=== PATIENT | female | born 1995 | race Caucasian/White ===

== ENCOUNTER 2018-12-04 18:37 | Inpatient (IN) ==
[2018-12-04 17:53] LABS: Bilirubin,Urine Negative (Negative); Blood,Urine Negative (Negative); Clarity,Urine Clear (Clear); Color,Urine Yellow (Yellow); Glucose,Urine (UA) Normal (Normal); Ketones,Urine Negative (Negative); Leukocyte Esterase,Urine Negative (Negative); Nitrite,Urine Negative (Negative); PH,Urine 6.5 pH Units (5.0-8.0); Protein,Urine Negative (Neg-Trace); Specific Gravity,Urine 1.014 (1.010-1.025); Urobilinogen,Urine Normal (Normal)
[2018-12-04 18:01] LABS: Amphetamine Screen,Urine Negative ng/mL (Cutoff=1000); Barbiturate Screen,Urine Negative ng/mL (Cutoff=200); Benzodiazepines Screen,Urine Negative ng/mL (Cutoff=200); Cannabinoid Screen,Urine Negative ng/mL (Cutoff = 50); Cocaine Screen,Urine Negative ng/mL (Cutoff= 300); Opiate Screen,Urine Negative ng/mL (Cutoff=300); Phencyclidine Screen,Urine Negative ng/mL (Cutoff=25)
[~2018-12-04 18:37] MED LIST: *HR* Nalbuphine 10 MG/ML AMPUL IVP PRN; Famotidine 20 MG/2 ML VIAL IVP PRN; Metoclopramide 10 MG/2 ML VIAL IVP PRN; Naloxone 0.4 MG/ML INJ IVP PRN; Ondansetron 4 MG/2 ML VIAL IVP PRN; Ringers Solution, Lactated 1,000 ML IVC ONE; Ringers Solution, Lactated 1,000 ML IVC SCH
--- NOTE | 2018-12-04 18:57 | OB/GYN History & Physical ---
Date of Encounter: 12/04/18 Time of Encounter: 18:57 Assessment and Plan (1) 37 weeks gestation of Current visit: Yes Status: Acute (2) Abnormal heart rate or rhythm (FHR) Current visit: Yes Status: Acute During extended monitoring prolonged deceleration noted on tracing, discuss with admit for induction of labor Admit to labor and delivery May eat prior to start of induction Cervical mejia and Cytotec Nubain and epidural as desired Continuous monitoring Anticipate History of Present Illness Chief complaint: Induction of labor HPI: Ms. Moseley is a 23 year old female 37+0 weeks gestation presents to labor and delivery for evaluation following tachycardia noted in office (180- 200), 150 on arrival to triage. Patient had ultrasound today which showed abdomen and femur length measuring small, and grade 3 placenta. Estimated weight today was 5 lbs. 15 oz., with an ROCK of 13. care with Dr. Lincoln, uncomplicated course other than today's ultrasound findings. Reports good movement, denies contraction, vaginal bleeding or leaking of fluid. Labs: O+, rubella and varicella immune, GBS negative, all other serologies negative Past Med Surg Social Fam HX - Past Medical History Source: patient Medical history: no medical history, other Psychiatric history: depression - Past Surgical History Surgical History: no surgical history - Social History Smoking Status: Current every day smoker Alcohol use: none Drug use: none - Family History Mother Age: 43 Living Status: Still Living Hx Family Cardiac Disorders: Yes (hypertension) Hx Family Respiratory Disorders: No Hx Family Cancer: No Hx Family GI Disorders: No Hx Family Genitourinary Disorders: No Hx Family Endocrine Disorder: No Hx Family Musculoskeletal Disorders: No Hx Family Neuromuscular Disorders: No Hx Family Neurologic Disorders: No Hx Family HEENT Disorders: No Hx Family Autoimmune Disorders: No Hx Family Reproductive Disorders: No Hx Family Psychosocial Disorders: No Hx Family Medical Disorders: No Obstetrical History - Pregnancies : 1 Para: 0 Term: 0 : 0 Ab's: 0 Livin Medications and Allergies Vitamin Tablet 1 / PO DAILY 12/04/18 [History] Allergy/AdvReac Type Severity Reaction Status Date / Time No Known Allergies Allergy Verified 03/22/16 15:26 Exam - Vital Signs Vital signs: Initial Vital Signs Temp Pulse Resp BP 98.8 F 86 14 130/82 05/23/19 17:17 12/04/18 17:17 12/04/18 17:17 12/04/18 17:17 - Constitutional Constitutional: well developed, well nourished, no acute distress, average body habitus - Neck Neck exam: full ROM - Lungs Respiratory exam: CTAB - Cardiovascular Cardiovascular exam: RRR - Abdomen Abdomen: Present: gravid, non tender - Extremities Extremities exam: normal capillary refill, normal inspection - Vagina Vagina: Present: normal moisture - Cervix Dilation: 1 Effacement: 80 Results All other labs normal. - VTE Reasons for not Prescribing Prophylaxis: Treatment not Indicated - Low risk for VTE
[2018-12-04 19:31] LABS: Basophils % 0.2 %; Eosinophils # 0.1 K/mcL (0.0-0.6); Eosinophils % 0.7 %; Hematocrit 34.7 % (35.3-44.9); Hemoglobin 11.1 g/dL (11.5-15.4); Immature Granulocytes % 0.7 % (0-4); Lymphocytes # 2.2 K/mcL (0.6-4.6); Lymphocytes % 17.9 %; Mean Corpuscular Hemoglobin 25.9 pg (28.0-33.3); Mean Corpuscular Volume 81.1 fL (83.0-100.0); Mean Platelet Volume 11.5 fL (9.4-12.4); Monocytes # 0.9 K/mcL (0.0-1.3); Monocytes % 7.2 %; Neutrophils # 9.1 K/mcL (1.6-8.9); Platelet Count 296 K/mcL (140-400); Red Blood Count 4.28 M/mcL (3.82-4.97); Red Cell Distribution Width 14.2 % (11.5-14.5); Segmented Neutrophils % 73.3 %
--- NOTE | 2018-12-04 22:25 | OB Labor Progress Note ---
Date of Encounter: 12/04/18 Time of Encounter: 22:22 Labor Progress Note - Subjective Subjective: Comfortable at this time. - Vital Signs Vital Signs: 130/83 - Cervix Cervix: 1/80/-2 - Heart Tones Heart Tones: 140/moderate/+accels/- decels - Interventions Interventions: Cervical mejia placed with 60cc balloon - Plan Physician notified: Yes Physician notified details: tracing reviewed with Dr. Condon prior to mejia placement, plan change to cervidil instead of cytotec Plan: Cervidil inserted mejia inserted benadryl as needed for sleep nubain and epidural as desired anticipate
--- NOTE | 2018-12-05 04:28 | OB Labor Progress Note ---
Date of Encounter: 12/05/18 Time of Encounter: 04:25 Labor Progress Note - Heart Tones Heart Tones: 145/moderate/positive accelerations/variable and late decelerations - [place]: Adjusted - Interventions Interventions: Luis came out when tugged by RN - Plan Plan: Continuous monitoring Nubain and epidural as desired Encourage repositioning Plan for next cervical exam after Cervidil time is over or if patient needs pain medication Anticipate
--- NOTE | 2018-12-05 08:07 | OB Labor Progress Note ---
Date of Encounter: 12/05/18 Time of Encounter: 08:07 Labor Progress Note - Subjective Subjective: Patient comfortable in bed. States contractions are tolerable. - Vital Signs Vital Signs: VSS - Cervix Cervix: 6/90/-1 - Heart Tones Heart Tones: 140 moderate variability with 15 x 15 accels and no decels. - Farmers Farmers: Contractions every 1 - 2 minutes palpate moderate to firm. resting tone palpates soft - Interventions Interventions: AROM for moderate amount of light blood tinged fluid and IUPC placed without difficult. Patient and fetus tolerated well. - Plan Physician notified: Yes Physician notified details: Notified of dilation and AROM/IUPC. Plan: Continue routine labor management GBS negative Consider pitocin if needed for augmentation Anticipate vaginal delivery POC per consult with Dr Miles.
[2018-12-05] MEDS ORDERED: Oxytocin 20 units/ LR 1000 mL 20 UNIT/1,000 ML BAG IVC ONE ×2 (08:17→15:18)
[2018-12-05] MEDS ORDERED: Epidural Premix (fent/bupiv) 110 ML EP ONE (09:01)
[2018-12-05] MEDS ORDERED: *HR* Ropivacaine/PF 0.2% 20 ML VIAL ONE (09:10)
[2018-12-05] MEDS ORDERED: Terbutaline 1 MG/ML VIAL SQ ONE ×2 (09:18→09:20)
--- NOTE | 2018-12-05 09:28 | Anesthesia Evaluation PreOp ---
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: Denies Any Significant HX Other Medical History: Denies Any Significant HX Anesthesia History: No Prior Anesthetic Complications Alcohol Use: none Drug use: none Medications and Allergies Vitamin Tablet 1 / PO DAILY 12/04/18 [History] Allergy/AdvReac Type Severity Reaction Status Date / Time No Known Allergies Allergy Verified 03/22/16 15:26 - Meds/Allergy Pre-op Review Medications Reviewed: Yes Allergies Reviewed: Yes Beta Blockers on Current Med List: No Anesthesia Results - Labs 12/04/18 19:10 Anesthesia Exam Last Vital Signs Temp 98.8 F 12/04/18 17:17 Pulse 86 12/04/18 17:17 Resp 14 12/04/18 17:17 BP 130/82 12/04/18 17:17 Weight: 84 kg NPO (# of Hours): > 8 hrs - HEENT Pupil (Motor): Pupils equal, EOMI Teeth: Normal Oral Opening: Greater than 3 - CORNER BEAD OPERATOR LOC: Oriented - Cardiac Rhythm: Regular - Pulmonary Breath Sounds: bilateral Clear Respiratory Effort: Symmetrical Anesthesia Assess/Plan ASA Score: 2 Level of consciousness: Cooperative Anesthetic Plan: Epidural Monitoring Plan: Standard Monitors Recovery Plan: Other (L&D room)
--- NOTE | 2018-12-05 09:30 | Anesthesia Procedures ---
Date of Encounter: 12/05/18 Time of Encounter: 09:05 Procedures: Anesthesia - Epidural/Spinal Patient ID/Chart reviewed: Yes Patient examined: Yes OB Eval: Gestational age: 37 weeks 1 day OB Eval: : 1 OB Eval: Hx Para: 0 OB Eval: Dilated at (cm): 8 OB Eval: Contractions: Non-stressed pattern Consent Obtained: Yes Supplemental Oxygen: None/Room Air Site Prep: Aseptic Technique, Sterile prep and drape, 0.5% Chlorhexidine/Alcohol Patient position: upright Local Anesthetic: Lidocaine 1% Amount of Local Anesthetic used: 3 Touhy Needle Gauge: 18 Touhy Needle Depth (cm): 6 Catheter Depth at Skin (cm): 15 Test Dose (1.5% Lido + Epi): Volume given (mls): 3 Test Dose Result: Negative Loading Dose: Other: 0.2% ropiv - 10 ml Loading Dose Administered: Thru Catheter Infusion Med: 0.125% Bupivacaine w/ 2 mcg/ml Fentanyl Infusion Rate (mls/hr): [address]: Tegaderm, Tape Interspace Used: L3-L4 Loss of Resistance (ZULEIKA): Yes Blood: No CSF: No Paresthesia: Yes (resolved)
[2018-12-05] MEDS ORDERED: EPHEDrine 50 MG/ML VIAL IVP PRN (10:33)
[2018-12-05] MEDS ORDERED: Ondansetron 4 MG/2 ML VIAL IVP PRN (10:33)
[2018-12-05] MEDS ORDERED: Acetaminophen 325 MG TABLET PO ONE ×2 (10:37→11:30)
[2018-12-05] MEDS ORDERED: Epidural Premix (fent/bupiv) 110 ML EP SCH (10:45)
--- NOTE | 2018-12-05 13:47 | OB/GYN Procedure Note ---
Delivery - Delivery Date: 12/05/18 Provider: Jak Miles Intrapartum events: none Delivery induction: mejia, cervidil Delivery augmentation: rupture of membranes, pitocin Delivery monitor: external FHT, external uterine, internal uterine Anesthesia: epidural Quantitated Blood Loss: 200 - (s) Infant A Infant Delivery Date: 12/05/18 Presentation: vertex Position: OA Route of delivery: Gender: Male Viability: Viable Pounds: 6 Ounces: 4 at 1 minute: 9 at 5 mins: 9 Shoulder Dystocia: not encountered Specimens collected: cord blood Placenta: spontaneous Cord: 3 umbilical vessels - Repair Episiotomy: none Laceration Description: Perineal - 2nd Degree - Complications Delivery complications: none Delivery comments: This patient progressed to complete and pushing and had a rapid spontaneous vaginal delivery of a male infant over an intact perineum. Infant's head was on the perineum with 2 contractions. The rest the infant was then delivered with 1 push. cried immediately upon delivery. The infant was passed to nursing in attendance. After cord pulsing. The cord was clamped cut. Cord blood was obtained. The placenta was then delivered spontaneously and intact. There are no cervical or vaginal lacerations noted. There was a right periurethral laceration which was repaired with 2 interrupted 3-0 Vicryl sutures. There was a perineal laceration which is a second-degree. This was repaired in usual fashion without incident. Patient tolerated delivery. There was approximate 200 mL blood loss. She delivered a male weight was 6 lbs. 4 oz. and Apgars 9 at 1 minute 9 at 5 minutes estimated blood loss is 200 mL - Disposition Mom disposition: stable in LDR disposition: stable in LDR
[2018-12-05] MEDS ORDERED: Oxytocin 20 units/ LR 1000 mL 20 UNIT/1,000 ML BAG IVC SCH (16:24)
[2018-12-05] MEDS ORDERED: Measles/Mumps/Rubella Vacc 0.5 ML VIAL SQ PRN (16:24)
[2018-12-05] MEDS ORDERED: Acetaminophen 325 MG TABLET PO PRN (16:24)
[2018-12-06 07:12] LABS: Basophils % 0.2 %; Eosinophils # 0.2 K/mcL (0.0-0.6); Hematocrit 31.1 % (35.3-44.9); Hemoglobin 9.9 g/dL (11.5-15.4); Immature Granulocytes % 0.5 % (0-4); Lymphocytes % 19.1 %; Mean Corpuscular HGB Conc 31.8 g/dL (31.6-35.5); Mean Corpuscular Hemoglobin 26.1 pg (28.0-33.3); Mean Corpuscular Volume 81.8 fL (83.0-100.0); Mean Platelet Volume 11.8 fL (9.4-12.4); Monocytes % 6.4 %; Neutrophils # 11.3 K/mcL (1.6-8.9); Platelet Count 246 K/mcL (140-400); Red Cell Distribution Width 14.2 % (11.5-14.5); Segmented Neutrophils % 72.8 %
[2018-12-06 07:46] VITALS: BP 124/74
[2018-12-06] MEDS ORDERED: Prenatal Vit/FA 1 EACH TABLET PO SCH (09:00)
--- NOTE | 2018-12-06 09:01 | Discharge Summary ---
Date of Encounter: 12/06/18 Time of Encounter: 08:58 - Discharge Diagnosis (1) Vaginal delivery Priority: Primary Status: Acute Comments: Continue routine care discharge home today follow up with Dr. Miles in 4-6 weeks (2) Breast feeding status of mother Priority: Secondary Status: Acute Comments: support prn - Discharge Medications Prescriptions: New Breast Pump [BREAST PUMP] 1 each .ROUTE AD #1 each Docusate [Colace] 100 mg PO BID #30 capsule Ibuprofen [Motrin] 600 mg PO Q6HR PRN #60 tab PRN Reason: Pain Continued Vitamin Tablet 1 / PO DAILY Home Medications: Vitamin Tablet 1 / PO DAILY 12/04/18 [History] Breast Pump [BREAST PUMP] 1 each .ROUTE AD #1 each 12/06/18 [Rx] Docusate [Colace] 100 mg PO BID #30 capsule 12/06/18 [Rx] Ibuprofen [Motrin] 600 mg PO Q6HR PRN #60 tab 12/06/18 [Rx] Allergies/Adverse Reactions: Allergy/AdvReac Type Severity Reaction Status Date / Time No Known Allergies Allergy Verified 03/22/16 15:26 Data Procedures and tests throughout hospitalization: Laboratory Tests 12/04/18 12/04/18 12/04/18 17:17 17:17 19:10 WBC 12.5 H RBC 4.28 Hgb 11.1 L Hct 34.7 L MCV 81.1 L MCH 25.9 L MCHC 32.0 RDW 14.2 Plt Count 296 MPV 11.5 Immature Gran % 0.7 Seg Neutrophils % 73.3 Lymphocytes % 17.9 Monocytes % 7.2 Eosinophils % 0.7 Basophils % 0.2 Neutrophils # 9.1 H Lymphocytes # 2.2 Monocytes # 0.9 Eosinophils # 0.1 Basophils # 0.0 Urine Color Yellow Urine Clarity Clear Urine pH 6.5 Ur Specific [place] 1.014 Urine Protein Negative Urine Glucose (UA) Normal Urine Ketones Negative Urine Blood Negative Urine Nitrite Negative Urine Bilirubin Negative Urine Urobilinogen Normal Ur Leukocyte Esterase Negative Ur Culture Indicated? NO Urine Opiates Screen Negative Ur Barbiturates Screen Negative Ur Phencyclidine Scrn Negative Ur Amphetamines Screen Negative U Benzodiazepines Scrn Negative Urine Cocaine Screen Negative U Marijuana (THC) Screen Negative Ur Drug Screen Interp See Below 12/06/18 06:35 WBC 15.6 H RBC 3.80 L Hgb 9.9 L Hct 31.1 L MCV 81.8 L MCH 26.1 L MCHC 31.8 RDW 14.2 Plt Count 246 MPV 11.8 Immature Gran % 0.5 Seg Neutrophils % 72.8 Lymphocytes % 19.1 Monocytes % 6.4 Eosinophils % 1.0 Basophils % 0.2 Neutrophils # 11.3 H Lymphocytes # 3.0 Monocytes # 1.0 Eosinophils # 0.2 Basophils # 0.0 Urine Color Urine Clarity Urine pH Ur Specific [place] Urine Protein Urine Glucose (UA) Urine Ketones Urine Blood Urine Nitrite Urine Bilirubin Urine Urobilinogen Ur Leukocyte Esterase Ur Culture Indicated? Urine Opiates Screen Ur Barbiturates Screen Ur Phencyclidine Scrn Ur Amphetamines Screen U Benzodiazepines Scrn Urine Cocaine Screen U Marijuana (THC) Screen Ur Drug Screen Interp Labs on day of discharge: Labs from last 24 hours 12/06/18 06:35 WBC 15.6 H RBC 3.80 L Hgb 9.9 L Hct 31.1 L MCV 81.8 L MCH 26.1 L MCHC 31.8 RDW 14.2 Plt Count 246 MPV 11.8 Immature Gran % 0.5 Seg Neutrophils % 72.8 Lymphocytes % 19.1 Monocytes % 6.4 Eosinophils % 1.0 Basophils % 0.2 Neutrophils # 11.3 H Lymphocytes # 3.0 Monocytes # 1.0 Eosinophils # 0.2 Basophils # 0.0 Date of admission: 12/04/18 18:37 Primary care physician: Bhavana Putnam CNP Consults: 12/05/18 16:24 Consult to Body Corporate Manager [CONS] Routine Comment: Vaginal delivery, consult needed Discharging clinician: Joya Granger Anticipated date of discharge: 12/06/18 - Patient Status Disposition: Home, Self-Care Condition: Good Functional capacity at discharge: independent ambulation - Discharge Instructions Follow Up With: Bhavana Putnam CNP [Primary Care Provider] - Jak Miles MD [Partnered Physician] - - Diet and Activity Activity: increase activity as tolerated Diet: regular diet Hospital Course Reason for admission: induction of labor Delivery: Episiotomy: none Laceration: 2nd degree Other procedures: none complications: none Discharge diagnosis: IUP at term delivered baby: male (breast feeding) Time Attestation: Total time spent providing and/or coordinating discharge services: Time Spent: Less than 30 minutes Exam - Constitutional Vitals: Temp Pulse Resp BP Pulse Ox 97.7 F 75 12 124/74 98 12/06/18 07:40 12/06/18 07:40 12/06/18 07:40 12/06/18 07:40 12/06/18 07:40 General appearance IM: A&O X 3, pleasant, answers questions appropriately - Respiratory Respiratory exam: Present: CTAB - Cardiovascular Cardiovascular exam IM: Present: RRR, +S1, +S2 - GI/Abdominal GI/Abdominal exam IM: normal bowel sounds - Uterine Tone: Firm Uterus Position: At Umbilicus, Midline - Extremities Exam Extremities exam IM: Present: full ROM, normal capillary refill, normal inspection - Neurological Exam Neurological exam: alert, oriented X3, reflexes normal
[2018-12-06] MEDS ORDERED: Benzocaine/Menthol 56 GM AEROSOL SPRAY TP PRN (09:04)
[2018-12-06] MEDS ORDERED: Lanolin 7 G OINT...G. TP PRN (09:04)
== END 2018-12-06 18:46 | disposition home or self-care (01) | DRG 807 ==
LOC: 1NENULAB → 1NENUOBS 12-05 16:51
PROVIDERS: ADMIT Advanced Practice Midwife; ATTEND Advanced Practice Midwife

== ENCOUNTER 2020-04-09 05:59 | Inpatient (IN) ==
[2020-04-09] MEDS ORDERED: EPHEDrine 50 MG/ML VIAL IVP PRN (06:13)
[2020-04-09] MEDS ORDERED: Epidural Premix (fent/bupiv) 110 ML EP SCH (06:15)
[2020-04-09] MEDS ORDERED: Metoclopramide 10 MG/2 ML VIAL IVP PRN (06:31)
[2020-04-09] MEDS ORDERED: Naloxone 0.4 MG/ML INJ IVP PRN (06:31)
[2020-04-09] MEDS ORDERED: Azithromycin 500 MG in 0.9 % Sodium Chloride 250 ML IVPB ONE (06:31)
[2020-04-09] MEDS ORDERED: Famotidine 20 MG/2 ML VIAL IVP PRN (06:31)
[2020-04-09] MEDS ORDERED: Ondansetron 4 MG/2 ML VIAL IVP PRN (06:31)
[2020-04-09] MEDS ORDERED: *HR* FentaNYL (PF) 100 MCG/2 ML VIAL IVP PRN (06:31)
[2020-04-09] MEDS ORDERED: Oxytocin 20 units/ LR 1000 mL 20 UNIT/1,000 ML BAG IVC SCH ×2 (06:45→17:04)
[2020-04-09] MEDS ORDERED: Ringers Solution, Lactated 1,000 ML IVC SCH (06:45)
[2020-04-09 06:46] LABS: Basophils # 0.1 K/mcL (0.0-0.2); Basophils % 0.4 %; Eosinophils # 0.2 K/mcL (0.0-0.6); Eosinophils % 1.4 %; Hematocrit 30.9 % (35.3-44.9); Hemoglobin 9.3 g/dL (11.5-15.4); Immature Granulocytes % 0.7 % (0-4); Lymphocytes # 2.9 K/mcL (0.6-4.6); Lymphocytes % 22.5 %; Mean Corpuscular HGB Conc 30.1 g/dL (31.6-35.5); Mean Corpuscular Hemoglobin 21.5 pg (28.0-33.3); Mean Corpuscular Volume 71.5 fL (83.0-100.0); Mean Platelet Volume 10.5 fL (9.4-12.4); Monocytes # 0.8 K/mcL (0.0-1.3); Monocytes % 6.1 %; Neutrophils # 8.9 K/mcL (1.6-8.9); Platelet Count 327 K/mcL (140-400); Red Blood Count 4.32 M/mcL (3.82-4.97); Red Cell Distribution Width 16.5 % (11.5-14.5); Segmented Neutrophils % 68.9 %; White Blood Count 12.9 K/mcL (4.3-11.1)
[2020-04-09] MEDS ORDERED: Ringers Solution, Lactated 1,000 ML ONE (06:46)
[2020-04-09 08:07] LABS: Amphetamine Screen,Urine Negative ng/mL (Cutoff=1000); Barbiturate Screen,Urine Negative ng/mL (Cutoff=200); Benzodiazepines Screen,Urine Negative ng/mL (Cutoff=200); Cannabinoid Screen,Urine Negative ng/mL (Cutoff = 50); Cocaine Screen,Urine Negative ng/mL (Cutoff= 300); Opiate Screen,Urine Negative ng/mL (Cutoff=300); Phencyclidine Screen,Urine Negative ng/mL (Cutoff=25)
[2020-04-09] MEDS ORDERED: Ropivacaine/PF 0.2% 20 ML VIAL EP ONE (09:19)
[2020-04-09] MEDS ORDERED: *HR* FentaNYL (PF) 100 MCG/2 ML VIAL EP ONE (09:19)
[2020-04-09] MEDS ORDERED: NON-FORMULARY MEDICATION 1 EACH EACH (Breast Pump [Breast Pump] 1 EACH) SCH (17:04)
[2020-04-09] MEDS ORDERED: Measles/Mumps/Rubella Vacc 0.5 ML VIAL SQ PRN (17:04)
[2020-04-09] MEDS ORDERED: Acetaminophen 325 MG TABLET PO PRN (17:04)
[2020-04-09] MEDS: Ibuprofen 600 MG TABLET PO PRN (19:49)
[2020-04-10] MEDS: Ibuprofen 600 MG TABLET PO PRN (07:37)
[2020-04-10 07:47] VITALS: BP 125/86
[2020-04-10 08:25] LABS: Basophils # 0.1 K/mcL (0.0-0.2); Basophils % 0.4 %; Eosinophils # 0.3 K/mcL (0.0-0.6); Eosinophils % 2.4 %; Hematocrit 30.5 % (35.3-44.9); Immature Granulocytes % 0.9 % (0-4); Lymphocytes # 3.5 K/mcL (0.6-4.6); Lymphocytes % 25.7 %; Mean Corpuscular HGB Conc 29.5 g/dL (31.6-35.5); Mean Corpuscular Hemoglobin 21.3 pg (28.0-33.3); Mean Corpuscular Volume 72.3 fL (83.0-100.0); Mean Platelet Volume 10.5 fL (9.4-12.4); Neutrophils # 8.7 K/mcL (1.6-8.9); Platelet Count 291 K/mcL (140-400); Red Blood Count 4.22 M/mcL (3.82-4.97); Red Cell Distribution Width 16.8 % (11.5-14.5); Segmented Neutrophils % 63.6 %; White Blood Count 13.6 K/mcL (4.3-11.1)
[2020-04-10] MEDS ORDERED: Prenatal Vit/FA 1 EACH TABLET PO SCH ×2 (09:00)
== END 2020-04-10 14:00 | disposition home or self-care (01) | DRG 560 ==
LOC: 1NENULAB 05:59 → 1NENUOBS 15:41
PROVIDERS: ADMIT Obstetrics & Gynecology; ATTEND Obstetrics & Gynecology